=== PATIENT | female | born 1980 | race Caucasian/White ===

== ENCOUNTER 2017-08-04 08:43 | Emergency (ER) | payer MEDICAID ==
--- NOTE | 2017-08-04 09:20 | ED Physician Documentation ---
History of Present Illness - Stated complaint Stated Complaint: RT THUMB PX - Chief complaint Chief Complaint: Ext Problem - History obtained from History obtained from: Patient, Family - History of Present Illness Timing: How many days ago (3) - Additonal information Additional information: 37-year-old female developed pain in her right thumb about 3 days ago the pain got a bit worse yesterday and then overnight it has become much more painful and swollen there is exquisite tenderness patient was unable to sleep last night and there is swelling. There is not much in the way of redness she does not believe she injured the thumb. She does have a family history of gout. She has never had an attack of gout herself. Review of Systems Constitutional: denies: Fever, Chills Eyes: denies: Decreased vision Ears: denies: Ear pain Nose: denies: Congestion Throat: denies: Sore throat Cardiac: denies: Chest pain / pressure Respiratory: denies: Cough GI: denies: Vomiting : denies: Dysuria Skin: denies: Rash Musculoskeletal: reports: Extremity pain, Joint pain, Joint swelling. 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 - Present Medications Home Medications: Ambulatory Orders Medication Instructions Recorded Confirmed HYDROcod/ACETAM 5/325 [[place] 5/325] 1 - 2 ea PO Q6H PRN #15 tablet 08/04/17 Indomethacin 25 mg PO Q6HR PRN #20 capsule 08/04/17 - Allergies Allergies/Adverse Reactions: Allergies Allergy/AdvReac Type Severity Reaction Status Date / Time No Known Drug Allergies Allergy Verified 08/19/15 17:17 - Social History Does the pt smoke?: Yes Smoking Status: Current every day smoker Does the pt drink ETOH?: Yes Does the pt have substance abuse?: No - Immunizations Immunizations are current?: Yes Immunizations: TDAP current <10years PD ED PE NORMAL - Vitals Vital signs reviewed: Yes (Hypertensive) - General General: Well developed/nourished, Other (37-year-old female appears to be in pain with watch caser tone and flattened affect) - HEENT HEENT: Atraumatic, PERRL - Respiratory Respiratory: No respiratory distress - Derm Derm: Normal color, Warm and dry, No rash - Extremities Extremities: Other (There is swelling and exquisite tenderness to the right thumb at the IP joint. There is no surrounding erythema or lymphangitic streaking. There is swelling confined to the IP joint and there is no tenderness of the MCP joint or the [facility] joint) - Neuro Neuro: No motor deficit, No sensory deficit - Psych Psych: Normal mood, Normal affect Results - Vitals Vitals: Vital Signs - 24 hr 08/04/17 08:45 Temperature 36.8 C Heart Rate 60 Respiratory 16 Rate Blood Pressure 135/81 H O2 Saturation 99 Oxygen O2 Source Room air - Rads (name of study) Right hand Radiology: Prelim report reviewed (Impression: Normal digit radiography.), EMP read indepedently, See rad report PD MEDICAL DECISION MAKING - ED course Complexity details: reviewed old records, reviewed results, re-evaluated patient , considered differential, d/w patient, d/w family ED course: 37-year-old female with exquisite right thumb swelling and tenderness consistent with acute gout. She is administered dexamethasone orally and Toradol IM. Departure - Departure Disposition: Home, Self Care Clinical Impression: Gout attack Qualifiers: Gout site: hand Gout etiology: unspecified cause Laterality: right Qualified Code(s): M10.9 - Gout, unspecified Condition: Stable Instructions: ED Arthritis Gout Follow-Up: [facility] [Provider Group] Prescriptions: Indomethacin 25 mg PO Q6HR PRN #20 capsule PRN Reason: Pain HYDROcod/ACETAM 5/325 [[place] 5/325] 1 - 2 ea PO Q6H PRN #15 tablet PRN Reason: Pain Comments: Today in the Emergency Department your blood pressure was elevated. This can happen from the stress of the visit itself, from a current illness or circumstance or from uncontrolled hypertension. If you take blood pressure medications take your usual mediations, have your blood pressure re-checked in an appropriate setting and follow up any elevation with your primary care doctor.
[2017-08-04] MEDS: DEXAMETHASONE 10 MG/ML VIAL PO STA (09:37)
[2017-08-04] MEDS ORDERED: DEXAMETHASONE 10 MG/ML VIAL ONE (09:37)
[2017-08-04] MEDS ORDERED: KETOROLAC 60 MG/2 ML VIAL ONE (09:37)
[2017-08-04] MEDS: KETOROLAC 60 MG/2 ML VIAL IM STA (09:38)
--- NOTE | 2017-08-04 09:44 | XRAY Preliminary Report ---
Exam: XR Finger(s) RT IMPRESSION: Normal digit radiography. [facility] SITE ID: [id number]
--- NOTE | 2017-08-04 09:46 | XRAY Report ---
EXAM: Right/ 1st DIGIT RADIOGRAPHY EXAM DATE: 08/04/2017 09:36 AM. CLINICAL HISTORY: Thumb swelling/pain. COMPARISON: None. TECHNIQUE: 3 views. FINDINGS: Bones: Normal. No fracture or bone lesion. Joints: Normal. No subluxations. Soft Tissues: soft tissue swelling. IMPRESSION: Normal digit radiography. [facility] Referring Provider Line: [phone] SITE ID: [id number]
[2017-08-04 10:09] VITALS: BP 144/65
== END 2017-08-04 10:06 | disposition home or self-care (01) ==
LOC: ED 08:43
DX: M10.9 Gout, unspecified (principal); F17.200 Nicotine dependence, unspecified, uncomplicated
CPT/HCPCS: 73140; 96372; 99283